=== PATIENT | male | born 1950 | race Caucasian/White ===

== ENCOUNTER 2023-07-31 13:53 | Outpatient (AMB) | payer MEDICARE, OTHER, SELFPAY ==
[2023-07-31 14:11] VITALS: BP 152/66; PULSE 60; O2SAT 98; BMI 27.5
--- NOTE | 2023-07-31 14:11 | HO.NEPHOV_ITS ---
HPI HPI Comments History of Present Illness Details 69-year-old man has a history of longsta nding hypertension and CKD. From a renal standpoint he is done well. Developed gout; PFSH Family History (Updated 07/31/23 @ 14:17 by Roxanne Rivero) Mother Breast cancer Social History (Updated 07/31/23 @ 14:16 by Roxanne Rivero) Alcohol intake: former Patient Tobacco Use Status: Former Tobacco user Vital Signs 07/31/23 14:11 07/31/23 14:30 Height 6 ft Weight 203 lb BMI 27.5 BP 152/66 H 140/60 H Blood Pressure Location Lt brachial Lt brachial Position Sitting Sitting Pulse 60 Pulse Source Pulse Oximeter Pulse Oximetry (%) 98 Oxygen Delivery Method Room Air Physical Exam Vital Signs: Last Vital Signs Pulse 60 07/31/23 14:11 BP 140/60 H 07/31/23 14:30 Pulse Ox 98 07/31/23 14:11 Oxygen Delivery Method Room Air 07/31/23 14:11 BMI result Body Mass Index 27.5 Const General: comfortable Nutritional Appearance: well nourished Orientation/consciousness: patient oriented x3 HEENT Head: No normal to inspection Mouth: moist mucous membranes Neck Neck: Yes supple and Yes no JVD Resp Auscultation: clear to auscultation bilaterally, no rales and rub present Cardio Jugular venous distension: no JVD Palpation: no palpable S3 and no palpable S4 Heart sounds: no rubs GI Palpation (GI): Soft to palpation and nontender Percussion: No Fluid wave present General: Yes no CVA tenderness Back/Spine/Pelvis Back: no CVA tenderness Skin General skin exam: no rashes or lesions noted Neuro General: patient oriented x3 Extrem General: Yes no pedal edema and No clubbing Assessment & Plan Assessment & Plan (1) CKD (chronic kidney disease): Code(s): N18.9 - Chronic kidney disease, unspecified Plan: Renal Function is at baseline Avoid nephrotoxins (2) HTN (hypertension): Code(s): I10 - Essential (primary) hypertension Plan: BP acceptable Initial reading was elevated Repeat was ok Low salt diet Keep same meds Orders: Orders Comprehensive Met. Panel 6 Months I10 - Essential (primary) hypertension, N18.9 - Chronic kidney disease, unspecified Complete Blood Count no Diff 6 Months I10 - Essential (primary) hypertension, N18.9 - Chronic kidney disease, unspecified Coding Level of Care Code Est Pt Level 4 (72996) Diagnoses CKD (chronic kidney disease) N18.9 HTN (hypertension) I10 Results Reviewed Results Reviewed: Cr 2.1 Nephrology Results: No Data to Display
[2023-07-31 14:30] VITALS: BP 140/60
== END 2023-07-31 14:39 | disposition home or self-care (01) ==
PROVIDERS: PCP Internal Medicine; Visit Provider Internal Medicine Hypertension Specialist
DX: I12.9 Hypertensive chronic kidney disease with stage 1 through stage 4 chronic kidney disease, or unspecified chronic kidney disease (principal); N18.9 Chronic kidney disease, unspecified
CPT/HCPCS: 99214

== ENCOUNTER → 2023-07-31 13:53 | Outpatient (BNVA) | payer MEDICARE, OTHER, SELFPAY | PROVIDERS: PCP Internal Medicine; Visit Provider Internal Medicine Hypertension Specialist | DX: I12.9 Hypertensive chronic kidney disease with stage 1 through stage 4 chronic kidney disease, or unspecified chronic kidney disease (principal); N18.9 Chronic kidney disease, unspecified | CPT/HCPCS: 99212 ==

== ENCOUNTER 2024-01-29 10:45 | Outpatient (AMB) | payer MEDICARE, OTHER, SELFPAY ==
--- NOTE | 2024-01-29 11:00 | HO.NEPHOV_ITS ---
Vital Signs 01/29/24 11:01 Height 6 ft Weight 199 lb BMI 27.0 BP 122/58 L Blood Pressure Location Lt brachial Position Sitting Pulse 66 Pulse Source Pulse Oximeter Pulse Oximetry (%) 97 Oxygen Delivery Method Room Air Intake Visit Reasons: 6 mon follow up/ LVM Research Neuropsychologist Required: No Accompanied by: Spouse Allergies amoxicillin [From Augmentin] Allergy (Mild, Verified 01/29/24 11:03) Unknown clavulanic acid [From Augmentin] Allergy (Mild, Verified 01/29/24 11:03) Unknown Medication List - Last Reconciled 01/29/24 by Michi Woodson MD allopurinol 300 mg PO DAILY amlodipine 10 mg PO DAILY aripiprazole 2.5 mg PO DAILY atorvastatin 80 mg PO DAILY bupropion HCl SR 150 mg PO BID carvedilol 3.125 mg PO BID escitalopram oxalate 20 mg PO DAILY ezetimibe 10 mg PO DAILY hydralazine 75 mg PO TID insulin degludec (Tresiba FlexTouch U-100 insulin) units subcut insulin lispro (Humalog KwikPen (U-100) Insulin) subcut lamotrigine 1/2 tab in AM 1 tab in PM losartan 25 mg PO DAILY trazodone 50 - 150 mg PO BEDTIME PRN HPI Comments Details: 69-year-old man has a history of longstanding hypertension and CKD. From a renal standpoint he is done well. Developed gout; PFSH Family History Mother Breast cancer Social History Alcohol intake: former Patient Tobacco Use Status: Former Tobacco user Physical Exam Vital Signs: Last Vital Signs Pulse 66 01/29/24 11:01 BP 122/58 L 01/29/24 11:01 Pulse Ox 97 01/29/24 11:01 Oxygen Delivery Method Room Air 01/29/24 11:01 BMI result Body Mass Index 27.0 Const General: comfortable; No acute distress Orientation/consciousness: patient oriented x3 Eyes General: appearance normal, both eyes and all related structures Visual Romero: normal visual romero by confrontation Neck Neck: Yes supple and Yes no JVD Resp Effort & Inspection: normal respiratory effort and respiratory effort not decreased Auscultation: rhonchi Cardio Palpation: no palpable S3 and no palpable S4 Heart sounds: no rubs GI Inspection: Yes normal to inspection Palpation (GI): Soft to palpation Percussion: Yes normal to percussion Auscultation: normal bowel sounds General: Yes no CVA tenderness Back/Spine/Pelvis Back: no CVA tenderness Skin General skin exam: no petechiae and no purpura Neuro General: patient oriented x3 and no focal motor deficits Extrem General: No clubbing and No edema Results Reviewed Nephrology Results: No Data to Display Assessment & Plan Assessment & Plan (1) CKD (chronic kidney disease): Code(s): N18.9 - Chronic kidney disease, unspecified Category: Medical Plan: Renal Function is at baseline Avoid nephrotoxins (2) HTN (hypertension): Code(s): I10 - Essential (primary) hypertension Category: Medical Plan: BP acceptable Low salt diet Keep same meds Orders: Orders Basic Metabolic Panel 6 Months N18.9 - Chronic kidney disease, unspecified Complete Blood Count Auto Diff 6 Months N18.9 - Chronic kidney disease, unspecified Coding Level of Care Code Est Pt Level 4 (10392) Diagnoses CKD (chronic kidney disease) N18.9 HTN (hypertension) I10
[2024-01-29 11:01] VITALS: BP 122/58; PULSE 66; O2SAT 97; BMI 27.0
== END 2024-01-29 11:22 | disposition home or self-care (01) ==
PROVIDERS: PCP Internal Medicine; Visit Provider Internal Medicine Hypertension Specialist
DX: I12.9 Hypertensive chronic kidney disease with stage 1 through stage 4 chronic kidney disease, or unspecified chronic kidney disease (principal); N18.9 Chronic kidney disease, unspecified
CPT/HCPCS: 99214

== ENCOUNTER → 2024-01-29 10:45 | Outpatient (BNVA) | payer MEDICARE, OTHER, SELFPAY | PROVIDERS: PCP Internal Medicine; Visit Provider Internal Medicine Hypertension Specialist | DX: I12.9 Hypertensive chronic kidney disease with stage 1 through stage 4 chronic kidney disease, or unspecified chronic kidney disease (principal); N18.9 Chronic kidney disease, unspecified | CPT/HCPCS: 99212 ==

== ENCOUNTER 2024-07-22 11:34 | Outpatient (AMB) | payer MEDICARE, OTHER, SELFPAY ==
[2024-07-22 11:44] VITALS: BP 140/68; PULSE 65; O2SAT 97; BMI 26.4
--- NOTE | 2024-07-22 11:44 | HO.NEPHOV ---
Vital Signs 07/22/24 11:44 07/22/24 11:57 Height 6 ft Weight 195 lb BMI 26.4 BP 140/68 H 130/60 Blood Pressure Location Lt brachial Lt brachial Position Sitting Sitting Pulse 65 Pulse Source Pulse Oximeter Pulse Oximetry (%) 97 Oxygen Delivery Method Room Air Intake Visit Reasons: CKD/ Conf Laboratory Animal Facility Supervisor Required: No Accompanied by: Self / Same As Patient Allergies amoxicillin [From Augmentin] Allergy (Mild, Verified 07/22/24 11:47) Unknown clavulanic acid [From Augmentin] Allergy (Mild, Verified 07/22/24 11:47) Unknown Medication List - Last Reconciled 07/22/24 by Michi Woodson MD allopurinol 300 mg PO DAILY amlodipine 10 mg PO DAILY aripiprazole 2.5 mg PO DAILY atorvastatin 80 mg PO DAILY bupropion HCl SR 150 mg PO BID carvedilol 3.125 mg PO BID escitalopram oxalate 20 mg PO DAILY ezetimibe 10 mg PO DAILY hydralazine 75 mg PO TID insulin degludec (Tresiba FlexTouch U-100 insulin) 18 units subcut .nightly lamotrigine 200 mg PO BID losartan 25 mg PO DAILY trazodone 50 - 150 mg PO BEDTIME HPI Comments Details: 69-year-old man has a history of longstanding hypertension and CKD. From a renal standpoint he is done well. Developed gout; PFSH Family History Mother Breast cancer Social History Alcohol intake: former Patient Tobacco Use Status: Former Tobacco user Physical Exam Vital Signs: Last Vital Signs Pulse 65 07/22/24 11:44 BP 140/68 H 07/22/24 11:44 Pulse Ox 97 07/22/24 11:44 Oxygen Delivery Method Room Air 07/22/24 11:44 BMI result Body Mass Index 26.4 Const General: comfortable; No acute distress Orientation/consciousness: patient oriented x3 Eyes General: appearance normal, both eyes and all related structures Visual Romero: normal visual romero by confrontation Neck Neck: Yes supple and Yes no JVD Resp Effort & Inspection: normal respiratory effort and respiratory effort not decreased Cardio Palpation: no palpable S3 and no palpable S4 Heart sounds: no rubs GI Inspection: Yes normal to inspection Palpation (GI): Soft to palpation Percussion: Yes normal to percussion Auscultation: normal bowel sounds General: Yes no CVA tenderness Back/Spine/Pelvis Back: no CVA tenderness Skin General skin exam: no petechiae and no purpura Neuro General: patient oriented x3 and no focal motor deficits Extrem General: No clubbing and No edema Results Reviewed Results Reviewed: Cr 2.0 in July 2024 Nephrology Results: No Data to Display Assessment & Plan Assessment & Plan (1) CKD (chronic kidney disease): Code(s): N18.9 - Chronic kidney disease, unspecified Category: Medical Plan: Renal Function is at baseline Avoid nephrotoxins Maintain A1C < 7% Would benefit from SGLT2 Inhibitor (2) HTN (hypertension): Code(s): I10 - Essential (primary) hypertension Category: Medical Plan: BP acceptable Low salt diet Keep same meds Orders: Orders Basic Metabolic Panel 6 Months N18.9 - Chronic kidney disease, unspecified Coding Level of Care Code Est Pt Level 4 (63387) Diagnoses CKD (chronic kidney disease) N18.9 HTN (hypertension) I10
[2024-07-22 11:57] VITALS: BP 130/60
== END 2024-07-22 12:02 | disposition home or self-care (01) ==
LOC: HO.HKAS 11:35
PROVIDERS: PCP Internal Medicine; Visit Provider Internal Medicine Hypertension Specialist
DX: I12.9 Hypertensive chronic kidney disease with stage 1 through stage 4 chronic kidney disease, or unspecified chronic kidney disease (principal); N18.9 Chronic kidney disease, unspecified
CPT/HCPCS: 99214

== ENCOUNTER → 2024-07-22 11:34 | Outpatient (BNVA) | payer MEDICARE, OTHER, SELFPAY | PROVIDERS: PCP Internal Medicine; Visit Provider Internal Medicine Hypertension Specialist | DX: I12.9 Hypertensive chronic kidney disease with stage 1 through stage 4 chronic kidney disease, or unspecified chronic kidney disease (principal); N18.9 Chronic kidney disease, unspecified | CPT/HCPCS: 99212 ==

== ENCOUNTER 2025-02-24 11:40 | Outpatient (AMB) | payer MEDICARE, OTHER, SELFPAY ==
--- OUTSIDE RECORDS SUMMARY | 2024-08-20 10:00 | XMS_ITS ---
Author Organization [facility], Address [address] [place] [address] Care Team Providers Care Ems Educator Name Role Phone Bonifacio Cuevas Primary Care Provider Bonifacio Cuevas Unavailable Unavailable ALLERGIES Allergen (clinical drug ingredient) Drug/Non Drug Allergy documented on EMR Reaction Allergy Type Onset Date Status amoxicillin / clavulanate Augmentin Unknown Drug Allergy Active REASON FOR VISIT (IN OFFICE), Follow Up MEDICATIONS Medication SIG (Take, Route, Frequency, Duration) Notes Start Date End Date Status Escitalopram Oxalate 20 MG (Prior Auth: Rx Ref#:[id number]) Oral Active lamoTRIgine 200 MG (Prior Auth: Rx Ref#:[id number]) Oral Active Furosemide 20 MG 1 tablet Orally Twic e a day for 30 day(s) Active HumaLOG KwikPen 100 UNIT/ML 10 units Subcutaneous Three times a day Active Tresiba 100 U-100 20 units at bedtime Injection Once a day Active Carvedilol 3.125 MG TAKE ONE TABLET BY M OUTH TWICE DAILY Active buPROPion HCl ER (SR) 150 MG (Prior Auth: Rx Ref#:[id number]) Oral Active Atorvastatin Calcium 80 MG TAKE 1 TABLET BY MOUTH EVERY DAY Active Ezetimibe 10 MG TAKE 1 TABLET BY VICENTE TH EVERY DAY Active traZODone HCl 50 MG 3 tablet at bedtime Orally Once a day Active Fluticasone Propionate 50 MCG/ACT SPRAY 1 SPRAY INTO EACH NOSTRIL EVERY DAY FOR 90 DAYS for 90 Active amLODIPine Besylate 10 MG 1 tablet Orally Once a day Active hydrALAZINE HCl 50 MG 2 tablet with food Orally Three times a day Active Trelegy Ellipta 100-62.5-25 MCG/INH 1 puff Inhalation Once a day Active Albuterol Sulfate HFA 108 (90 Base) MCG/ACT INHALE 2 PUFFS BY MOUTH NEEDED EVERY 6 HOURS Active Mucinex 600 MG 1 tablet as needed O rally every 12 hrs for 10 days 07/15/2024 Active Azithromycin 250 MG 2 tablets on the day, then 1 tablet daily for 4 days Orally Once a day for 5 day(s) 07/15/2024 Active Ezetimibe 10 MG TAKE 1 TABLET BY VICENTE TH EVERY DAY for 90 Active Atorvastatin Calcium 80 MG TAKE 1 TABLET BY MOUTH EVERY DAY for 90 Active Allopurinol 300 MG TAKE 1 TABLET BY VICENTE TH EVERY DAY for 90 Active Fenofibrate Micronized 134 MG 1 capsule Orally Once a day Active Plavix 75 MG 1 tablet Orally Once a day Active Isosorbide Mononitrate ER 30 MG 1 tablet in the morning Orally Once a day Active Albuterol Sulfate HFA 108 (90 Base) MCG/ACT INHALE 2 PUFFS INTO THE LUNGS EVERY 4 HOURS NEEDED for 30 Active Carvedilol 3.125 MG TAKE 1 TABLET BY VICENTE TH TWICE A DAY WITH FOOD FOR 90 DAYS for 90 Active ARIPiprazole 2 MG Oral for 30 Active SOCIAL HISTORY Tobacco Use: Social History Observation Description Date Details (start date - stop date) Former Smoker NA - NA Sex Assigned At : Social History Observation Description Sex Assigned At Unknown Tobacco Use/Smoking Question Answer Notes Are you a former smoker How long has it been since you last smoked? > 10 years Encounters Encounter Location Date Provider Diagnosis [address] [address] 08/20/2024 Bonifacio Cuevas Chronic obstructive pulmonary disease, unspecified COPD type J44.9 ; Type 2 diabetes mellitus without complications E11.9 ; Essential hypertension I10 ; Aortic valve stenosis, etiology of cardiac valve disease unspecified I35.0 ; Recurrent major depressive disorder, in full remission F33.42 ; Chronic kidney disease, stage 4 (severe) N18.4 ; Mixed hyperlipidemia E78.2 ; Gouty arthritis M10.9 ; Leg edema R60.0 ; Difficulty walking R26.2 ; Primary insomnia F51.01 and Anxiety F41.9 ASSESSMENTS Encounter Date Diagnosis Assessment Notes Treatment Notes Treatment Clinical Notes Section Notes 08/20/2024 Chronic obstructive pulmonary disease, unspecified COPD type (ICD-10 - J44.9) 08/20/2024 Type 2 diabetes mellitus without complications (ICD-10 - E11.9) 08/20/2024 Essential hypertension (ICD-10 - I10) 08/20/2024 Aortic valve stenosis, etiology of cardiac valve disease unspecified (ICD-10 - I35.0) 08/20/2024 Recurrent major depressive disorder, in full remission (ICD-10 - F33.42) Well controlled on current therapy, continue present regimen 08/20/2024 Chronic kidney disease, stage 4 (severe) (ICD-10 - N18.4) 08/20/2024 Mixed hyperlipidemia (ICD-10 - E78.2) Well controlled on current therapy, continue present regimen 08/20/2024 Gouty arthritis (ICD-10 - M10.9) 08/20/2024 Leg edema (ICD-10 - R60.0) Patient was advised to hold furosemide and monitor his weight and leg swelling. I explained to him that if he starts gaining weight and having difficulty breathing or leg edema to start the medication again. 08/20/2024 Difficulty walking (ICD-10 - R26.2) 08/20/2024 Primary insomnia (ICD-10 - F51.01) 08/20/2024 Anxiety (ICD-10 - F41.9) Well controlled on current therapy, continue present regimen 08/20/2024 Other This chart has been transcribed by a computerized dictation system. There are likely to be multiple street cleaner inaccuracies despite chart review. PLAN OF TREATMENT Medication Medication Name Sig Start Date Stop Date Notes Escitalopram Oxalate 20 MG (Prior Auth: Rx Ref#:[id number]) Oral lamoTRIgine 200 MG (Prior Auth: Rx Ref#:[id number]) Oral Furosemide 20 MG 1 tablet Orally Twic e a day for 30 day(s) HumaLOG KwikPen 100 UNIT/ML 10 units Sub cutaneous Three times a day Tresiba 100 U-100 20 units at bedtime Injection Once a day Carvedilol 3.125 MG TAKE ONE TABLET BY M OUTH TWICE DAILY buPROPion HCl ER (SR) 150 MG (Prior Auth : Rx Ref#:[id number]) Oral Atorvastatin Calcium 80 MG TAKE 1 TABLET BY MOUTH EVERY DAY Ezetimibe 10 MG TAKE 1 TABLET BY VICENTE TH EVERY DAY traZODone HCl 50 MG 3 tablet at bedtime Orally Once a day amLODIPine Besylate 10 MG 1 tablet Orally Once a day hydrALAZINE HCl 50 MG 2 tablet with food Orally Three times a day Trelegy Ellipta 100-62.5-25 MCG/INH 1 puff Inhalation Once a day Albuterol Sulfate HFA 108 (9 0 Base) MCG/ACT INHALE 2 PUFFS BY MOUTH NEEDED EVERY 6 HOURS Treatment Notes Assessment Notes Recurrent major depressive d isorder, in full remission Well controlled on current therapy, continue present regimen Mixed hyperlipidemia Well controlled on current therapy, continue present regimen Leg edema Patient was advised to hold furosemide and monitor his weight and leg swelling. I explained to him that if he starts gaining weight and having difficulty breathing or leg edema to start the medication again. Anxiety Well controlled on c urrent therapy, continue present regimen Other This chart has been transcribed by a computerized dictation system. There are likely to be multiple street cleaner inaccuracies despite chart review. Next Appt Details Provider Name:Edwina Max sweetie, 04/21/2025 01:15:00 PM, [address] [place] [address], [id number], Progress Notes * Examination Category Sub-Category Detail Notes Category Not es General Examination GENERAL APPEARANCE: in no ac joseph distress, well developed, well nourished HEAD: normocephalic, atrau matic EYES: pupils equal, round, reactive to light and accommodation EARS: Bilateral impacted c erumen THROAT: clear, no erythema, uvula midline, no exudate NECK/THYROID: neck supple, no thyr omegaly, trachea midline, no carotid bruit HEART: no murmurs, regular rate and rhythm, S1, S2 normal LUNGS: clear to auscultatio n bilaterally ABDOMEN: soft, nontender, non distended, no organomegaly , bowel sounds present NEUROLOGIC: alert and oriented x 3, nonfocal SKIN: no suspicious lesion s, warm and dry EXTREMITIES: no clubbing, cyanosi s, or edema PERIPHERAL PULSES: normal, 2+ throughou t MUSCULOSKELETAL: normal, full range o f motion LYMPH NODES: no cervical, axillar y, supraclavicular or inguinal adenopathy PSYCH: cognitive function i ntact, mood/affect full range ORAL CAVITY: mucosa moist, no les ions, palate normal, tongue in midline, well papillated History and Physical Notes * HPI (History of Present Illness) Category Sub-Category Detail Notes Category Not es Symptom(s) 74-year-old mal e patient with history of aortic stenosis, lithium induced chronic kidney disease, hypertension, hyperlipidemia, anxiety, depression, DM2, and insomnia, is here complaining of cough, congestion, yellow-green phlegm, for the past 3-4 days. Patient denies fever, chills, or other constitutional symptoms. He is compliant with his regular medications without any side effects.
--- OUTSIDE RECORDS SUMMARY | 2024-08-20 11:17 | XMS_ITS ---
Author Organization [facility] Address [address] [place] [address] Care Team Providers Care Athletic Shoe Designer Name Role Phone Bonifacio Cuevas Primary Care Provider [phone] Bonifacio Cuevas Unavailable Unavailable REASON FOR VISIT Samples Encounters Encounter Location Date Provider Diagnosis [facility] [address] [place] [address] 08/21/19 Bonifacio Cuevas PLAN OF TREATMENT Next Appt Details Provider Name:Edwina Max i, 04/21/2025 01:15:00 PM, [address] [place], [address],
--- OUTSIDE RECORDS SUMMARY | 2024-09-12 09:24 | XMS_ITS ---
Author Organization [facility] Address [address] [place] [address] Care Team Providers Care Supervisor Rice Milling Name Role Phone Bonifacio Cuevas Primary Care Provider [phone] Bonifacio Cuevas Unavailable Unavailable REASON FOR VISIT Prescription refill MEDICATIONS Medication SIG (Take, Route, Fr equency, Duration) Notes Start Date End Date Status Carvedilol 3.125 MG 1 tablet with food O rally Twice a day for 90 Days Active Encounters Encounter Location Date Provider Diagnosis [facility] [address] [place] [address] 09/13/19 Bonifacio Cuevas PLAN OF TREATMENT Medication Medication Name Sig Start Date Stop Date Notes Carvedilol 3.125 MG 1 tablet with food O rally Twice a day for 90 Days Next Appt Details Provider Name:Edwina Max i, 04/21/2025 01:15:00 PM, [address] [place] [address], [phone],
--- OUTSIDE RECORDS SUMMARY | 2024-09-16 03:46 | XMS_ITS ---
Author Organization [facility] Address [address] [place] [address] Care Team Providers Care Director Strategic Planning Name Role Phone Bonifacio Cuevas Primary Care Provider [phone] Bonifacio Cuevas Unavailable Unavailable REASON FOR VISIT Appt Encounters Encounter Location Date Provider Diagnosis [facility] [address] [place] [address] 09/17/19 Bonifacio Cuevas PLAN OF TREATMENT Next Appt Details Provider Name:Edwina Max i, 04/21/2025 01:15:00 PM, [address] [place], [address],
--- OUTSIDE RECORDS SUMMARY | 2024-10-20 10:08 | XMS_ITS ---
Author Organization [facility] Address [address] [place] [address] Care Team Providers Care Speech And Hearing [facility] Director Name Role Phone Bonifacio Cuevas Primary Care Provider Bonifacio Cuevas Unavailable Unavailable REASON FOR VISIT Walker Encounters Encounter Location Date Provider Diagnosis [facility] [address] [place] [address] 10/21/19 Bonifacio Cuevas PLAN OF TREATMENT Next Appt Details Provider Name:Edwina Max i, 04/21/2025 01:15:00 PM, [address] [place], [address],
--- OUTSIDE RECORDS SUMMARY | 2025-01-14 09:15 | XMS_ITS ---
Author Organization [facility] Address [address] [place] [address] Care Team Providers Care Senior Production Manager Name Role Phone Bonifacio Cuevas Primary Care Provider Bonifacio Cuevas Unavailable Unavailable REASON FOR VISIT (IN OFFICE), Follow Up Encounters Encounter Location Date Provider Diagnosis [facility] [address] [place] [address] 01/15/20 25 Bonifacio Cuevas PLAN OF TREATMENT Next Appt Details Provider Name:Edwina Max i, 04/21/2025 01:15:00 PM, [address] [place], [address],
--- OUTSIDE RECORDS SUMMARY | 2025-01-25 09:15 | XMS_ITS ---
Author Organization [facility] Address [address] [place] [address] Care Team Providers Care Ham Pumper Name Role Phone Bonifacio Cuevas Primary Care Provider Bonifacio Cuevas Unavailable Unavailable ALLERGIES Allergen (clinical drug ingredient) Drug/Non Drug Allergy documented on EMR Reaction Allergy Type Onset Date Status amoxicillin / clavulanate Augmentin Unknown Drug Allergy Active RESULTS Component Value Reference Range Notes [id number] [id number] Reviewed date:01/28/2025 09:32:27 AM Interpretation: Performing Lab:[facility], [address] [facility], Phone - [phone], Director - Stacie Notes/Report: Uric Acid 2.9 3.8-8.4 mg/dL Therapeutic ta rget for gout patients: <6.0 Hemoglobin [id number] Reviewed date:01/28/2025 09:32:27 AM Interpretation: Performing Lab:[facility], [address] [facility], Phone - [phone], Director - MDJodry Notes/Report: Hemoglobin A1c 6.7 4.8-5.6 % . Prediabetes: 5.7 - 6.4 Diabetes: >6.4 Glycemic control for adults with diabetes: <7.0 LP+Non-HDL Cholesterol-[id number] 5 Reviewed date:01/28/2025 09:32:28 AM Interpretation: Performing Lab:[facility], [address] [facility], [place], Phone - [phone], Director - MDJodry Notes/Report: Cholesterol, Total 113 100-199 mg/dL Triglycerides 156 0-149 mg/dL HDL Cholesterol 35 >39 mg/dL VLDL Cholesterol Blake 27 5-40 mg/dL LDL Chol Calc ([facility]) 51 0-99 mg/dL LDL Calc Comment: Non-HDL Cholesterol 78 0-129 mg/dL Comp. Metabolic Panel [id number] Reviewed date:01/28/2025 09:32:28 AM Interpretation: Performing Lab:[facility], [address] [facility], [place], Phone - [phone], Director - Staice Notes/Report: Glucose 88 70-99 mg/dL BUN 24 8-27 mg/dL Creatinine 2.11 0.76-1.27 mg/dL eGFR 32 >59 mL/min/1.73 BUN/Creatinine Ratio 11 10-24 Sodium 140 134-144 mmol/L Potassium 4.4 3.5-5.2 mmol/L Chloride 104 96-106 mmol/L Carbon Dioxide, Total 18 20-29 mmol/L Calcium 9.3 8.6-10.2 mg/dL Protein, Total 6.3 6.0-8.5 g/dL Albumin 4.3 3.8-4.8 g/dL Globulin, Total 2.0 1.5-4.5 g/dL Bilirubin, Total <0.2 0.0-1.2 mg/dL Alkaline Phosphatase 81 47-123 IU/L Pleas e note reference interval change AST (SGOT) 24 0-40 IU/L [id number] Reviewed date:01/28/2025 09:32:28 AM Interpretation: Performing Lab:[facility], [address] [facility], [place], Phone - [phone], Director - Stacie Notes/Report: NT-proBNP 207 0-486 pg/mL The following cut-points have been suggested for the use of proBNP for the diagnostic evaluation of heart failure (HF) in patients with acute dyspnea: . Modality Age Optimal Cut (years) Point Diagnosis (rule in HF) <50 450 pg/mL 50 - 75 900 pg/mL >75 1800 pg/mL Exclusion (rule out HF) Age independent 300 pg/mL REASON FOR VISIT (IN OFFICE), Follow Up MEDICATIONS Medication SIG (Take, Route, Frequency, Duration) Notes Start Date End Date Status Carvedilol 3.125 MG TAKE ONE TABLET BY M OUTH TWICE DAILY Active Escitalopram Oxalate 20 MG (Prior Auth: Rx Ref#:[id number]) Oral Active buPROPion HCl ER (SR) 150 MG (Prior Auth: Rx Ref#:[id number]) Oral Active HumaLOG KwikPen 100 UNIT/ML 10 units Subcutaneous Three times a day Active lamoTRIgine 200 MG (Prior Auth: Rx Ref#:[id number]) Oral Active Trelegy Ellipta 100-62.5-25 MCG/INH 1 puff Inhalation Once a day Active traZODone HCl 50 MG 3 tablet at bedtime Orally Once a day Active Albuterol Sulfate HFA 108 (90 Base) MCG/ACT INHALE 2 PUFFS BY MOUTH NEEDED EVERY 6 HOURS Active Ezetimibe 10 MG TAKE 1 TABLET BY VICENTE TH EVERY DAY Active Atorvastatin Calcium 80 MG TAKE 1 TABLET BY MOUTH EVERY DAY Active Ezetimibe 10 MG TAKE 1 TABLET BY VICENTE TH EVERY DAY for 90 Active amLODIPine Besylate 10 MG TAKE 1 TABLET BY MOUTH EVERY DAY FOR 90 DAYS for 90 Active Carvedilol 3.125 MG TAKE 1 TABLET BY VICENTE TH TWICE A DAY WITH FOOD FOR 90 DAYS for 90 Active Allopurinol 300 MG TAKE 1 TABLET BY VICENTE TH EVERY DAY for 90 Active Atorvastatin Calcium 80 MG TAKE 1 TABLET BY MOUTH EVERY DAY for 90 Active Admelog SoloStar 100 UNIT/ML Subcutaneous for 90 Active Fluticasone Propionate 50 MCG/ACT SPRAY 1 SPRAY INTO EACH NOSTRIL EVERY DAY FOR 90 DAYS for 90 Active Furosemide 20 MG 1 tablet Orally Twic e a day for 30 day(s) Active Plavix 75 MG 1 tablet Orally Once a day Active Albuterol Sulfate HFA 108 (90 Base) MCG/ACT INHALE 2 PUFFS INTO THE LUNGS EVERY 4 HOURS NEEDED for 30 Active amLODIPine Besylate 10 MG 1 tablet Orally Once a day Active ARIPiprazole 5 MG 1/2 TABLET BY MOUTH DAILY Oral Active hydrALAZINE HCl 50 MG 1.5 tablet with fo od Orally Three times a day Active Fenofibrate Micronized 134 MG 1 capsule Orally Once a day Active Rollator Ultra-Light - as directed Active Tresiba 100 U-100 18 units at bedtime Injection Once a day Active SOCIAL HISTORY Tobacco Use: Social History Observation Description Date Details (start date - stop date) Former Smoker NA - NA Sex Assigned At : Social History Observation Description Sex Assigned At Unknown Tobacco Use/Smoking Question Answer Notes Are you a former smoker How long has it been since you last smoked? > 10 years VITAL SIGNS Blood pressure systolic 124 mm Hg 01/26/20 25 Blood pressure diastolic 70 mm Hg 025 Heart Rate 76 /min 01/25/2025 Height 72 in 01/25/2025 Weight 192.6 lbs 01/25/2025 BMI 26.12 kg/m2 01/25/2025 192.6 Encounters Encounter Location Date Provider Diagnosis [facility] [address] [address] 01/25/2025 Bonifacio Cuevas Chronic obstructive pulmonary disease, unspecified COPD type J44.9 ; Type 2 diabetes mellitus without complications E11.9 ; Essential hypertension I10 ; Aortic valve stenosis, etiology of cardiac valve disease unspecified I35.0 ; Recurrent major depressive disorder, in full remission F33.42 ; Chronic kidney disease, stage 4 (severe) N18.4 ; Mixed hyperlipidemia E78.2 ; Gouty arthritis M10.9 ; Primary insomnia F51.01 ; Difficulty walking R26.2 ; Anxiety F41.9 and Gait instability R26.81 ASSESSMENTS Encounter Date Diagnosis Assessment Notes Treatment Notes Treatment Clinical Notes Section Notes 01/25/2025 Chronic obstructive pulmonary disease, unspecified COPD type (ICD-10 - J44.9) 01/25/2025 Type 2 diabetes mellitus without complications (ICD-10 - E11.9) 01/25/2025 Essential hypertension (ICD-10 - I10) 01/25/2025 Aortic valve stenosis, etiology of cardiac valve disease unspecified (ICD-10 - I35.0) 01/25/2025 Recurrent major depressive disorder, in full remission (ICD-10 - F33.42) 01/25/2025 Chronic kidney disease, stage 4 (severe) (ICD-10 - N18.4) 01/25/2025 Mixed hyperlipidemia (ICD-10 - E78.2) 01/25/2025 Gouty arthritis (ICD-10 - M10.9) 01/25/2025 Primary insomnia (ICD-10 - F51.01) 01/25/2025 Difficulty walking (ICD-10 - R26.2) 01/25/2025 Anxiety (ICD-10 - F41.9) 01/25/2025 Gait instability (ICD-10 - R26.81) 01/25/2025 Other This chart has been transcribed by a computerized dictation system. There are likely to be multiple delivery stock clerk inaccuracies despite chart review. PLAN OF TREATMENT Medication Medication Name Sig Start Date Stop Date Notes Carvedilol 3.125 MG TAKE ONE TABLET BY M OUTH TWICE DAILY Escitalopram Oxalate 20 MG (Prior Auth: Rx Ref#:[id number]) Oral buPROPion HCl ER (SR) 150 MG (Prior Auth : Rx Ref#:[id number]) Oral HumaLOG KwikPen 100 UNIT/ML 10 units Sub cutaneous Three times a day lamoTRIgine 200 MG (Prior Auth: Rx Ref#:[id number]) Oral Trelegy Ellipta 100-62.5-25 MCG/INH 1 puff Inhalation Once a day traZODone HCl 50 MG 3 tablet at bedtime Orally Once a day Albuterol Sulfate HFA 108 (9 0 Base) MCG/ACT INHALE 2 PUFFS BY MOUTH NEEDED EVERY 6 HOURS Ezetimibe 10 MG TAKE 1 TABLET BY VICENTE TH EVERY DAY Atorvastatin Calcium 80 MG TAKE 1 TABLET BY MOUTH EVERY DAY amLODIPine Besylate 10 MG 1 tablet Orally Once a day ARIPiprazole 5 MG 1/2 TABLET BY MOUTH DAILY Oral hydrALAZINE HCl 50 MG 1.5 tablet with fo od Orally Three times a day Rollator Ultra-Light - as directed Tresiba 100 U-100 18 units at bedtime Injection Once a day Treatment Notes Assessment Notes Other This chart has been transcribed by a computerized dictation system. There are likely to be multiple delivery stock clerk inaccuracies despite chart review. Next Appt Details Follow Up: 1 Week, Reason: F ollow-up [facility] Cuevas Provider Name:Edwina Winter pitt, 04/21/2025 01:15:00 PM, [address] [place] [address], [phone], Progress Notes * Examination Category Sub-Category Detail Notes Category Not es General Examination GENERAL APPEARANCE: in no ac joseph distress, well developed, well nourished HEAD: normocephalic, atrau matic EYES: pupils equal, round, reactive to light and accommodation EARS: normal, auditory can al clear THROAT: clear, no erythema, uvula midline, no [...] t MUSCULOSKELETAL: normal, full range o f motion, ambulating with walker LYMPH NODES: no cervical, axillar y, supraclavicular or inguinal adenopathy PSYCH: cognitive function i ntact, mood/affect full range ORAL CAVITY: mucosa moist, no les ions, palate normal, tongue in midline, well papillated History and Physical Notes * HPI (History of Present Illness) Category Sub-Category Detail Notes Category Not es Symptom(s) 75-year-old mal e patient with history of aortic stenosis, lithium induced chronic kidney disease, hypertension, hyperlipidemia, anxiety, depression, DM2, and insomnia, is here for a follow-up, accompanied by his . Patient was supposed to have labs prior to this visit but forgot about it. I ordered appropriate for him and instructed patient and his to make sure the labs are done before his next visit. He is compliant with his medications without any side effects. His blood pressure is well-controlled. He denies chest pain, palpitation, or shortness of breath. His chronic respiratory symptoms are well-controlled on current inhalers
--- OUTSIDE RECORDS SUMMARY | 2025-02-02 09:00 | XMS_ITS ---
Author Organization [facility], Address [address] [place] [address] Care Team Providers Care Lead Software Architect Name Role Phone Bonifacio Cuevas Primary Care Provider Bonifacio Cuevas Unavailable Unavailable ALLERGIES Allergen (clinical drug ingredient) Drug/Non Drug Allergy documented on EMR Reaction Allergy Type Onset Date Status amoxicillin / clavulanate Augmentin Unknown Drug Allergy Active REASON FOR VISIT (IN OFFICE), Follow Up 1 wk MEDICATIONS Medication SIG (Take, Route, Frequency, Duration) Notes Start Date End Date Status Escitalopram Oxalate 20 MG (Prior Auth: Rx Ref#:[id number]) Oral Active buPROPion HCl ER (SR) 150 MG (Prior Auth: Rx Ref#:[id number]) Oral Active HumaLOG KwikPen 100 UNIT/ML 10 units Subcutaneous Three times a day Active lamoTRIgine 200 MG (Prior Auth: Rx Ref#:[id number]) Oral Active Carvedilol 3.125 MG TAKE ONE TABLET BY M OUTH TWICE DAILY Active Albuterol Sulfate HFA 108 (90 Base) MCG/ACT inhale 2 puffs by mouth as needed every 6 hours Active Allopurinol 300 MG TAKE 1 TABLET BY VICENTE TH EVERY DAY for 90 Active Rollator Ultra-Light - as directed Active Atorvastatin Calcium 80 MG TAKE 1 TABLET BY MOUTH EVERY DAY Active Ezetimibe 10 MG TAKE 1 TABLET BY VICENTE TH EVERY DAY Active Trelegy Ellipta 100-62.5-25 MCG/INH 1 puff Inhalation Once a day Active Atorvastatin Calcium 80 MG TAKE 1 TABLET BY MOUTH EVERY DAY for 90 Active amLODIPine Besylate 10 MG TAKE 1 TABLET BY MOUTH EVERY DAY FOR 90 DAYS for 90 Active Albuterol Sulfate HFA 108 (90 Base) MCG/ACT INHALE 2 PUFFS INTO THE LUNGS EVERY 4 HOURS NEEDED for 17 Active traZODone HCl 50 MG 3 tablet at bedtime Orally Once a day Active ARIPiprazole 5 MG 1/2 TABLET BY MOUTH DAILY Oral Active Plavix 75 MG 1 tablet Orally Once a day Active Fenofibrate Micronized 134 MG 1 capsule Orally Once a day Active Carvedilol 3.125 MG TAKE 1 TABLET BY VICENTE TH TWICE A DAY WITH FOOD FOR 90 DAYS for 90 Active Furosemide 20 MG 1 tablet Orally Twic e a day for 30 day(s) Active amLODIPine Besylate 10 MG 1 tablet Orally Once a day Active Tresiba 100 U-100 18 units at bedtime Injection Once a day Active hydrALAZINE HCl 50 MG 1.5 tablet with fo od Orally Three times a day Active SOCIAL HISTORY Tobacco Use: Social History Observation Description Date Details (start date - stop date) Former Smoker NA - NA Sex Assigned At : Social History Observation Description Sex Assigned At Unknown Tobacco Use/Smoking Question Answer Notes Are you a former smoker How long has it been since you last smoked? > 10 years VITAL SIGNS Blood pressure systolic 120 mm Hg 02/03/20 25 Blood pressure diastolic 60 mm Hg 025 Heart Rate 78 /min 02/02/2025 Height 72 in 02/02/2025 Weight 192.8 lbs 02/02/2025 BMI 26.15 kg/m2 02/02/2025 Encounters Encounter Location Date Provider Diagnosis [email or web address] [address] 02/02/2025 Bonifacio Cuevas Chronic obstructive pulmonary disease, unspecified [...] Treatment Notes Treatment Clinical Notes Section Notes 02/02/2025 Chronic obstructive pulmonary disease, unspecified COPD type (ICD-10 - J44.9) 02/02/2025 Type 2 diabetes mellitus without complications (ICD-10 - E11.9) 02/02/2025 Essential hypertension (ICD-10 - I10) 02/02/2025 Aortic valve stenosis, etiology of cardiac valve disease unspecified (ICD-10 - I35.0) 02/02/2025 Recurrent major depressive disorder, in full remission (ICD-10 - F33.42) 02/02/2025 Chronic kidney disease, stage 4 (severe) (ICD-10 - N18.4) 02/02/2025 Mixed hyperlipidemia (ICD-10 - E78.2) 02/02/2025 Gouty arthritis (ICD-10 - M10.9) 02/02/2025 Primary insomnia (ICD-10 - F51.01) 02/02/2025 Difficulty walking (ICD-10 - R26.2) 02/02/2025 Anxiety (ICD-10 - F41.9) 02/02/2025 Gait instability (ICD-10 - R26.81) 02/02/2025 Other This chart has been transcribed by a computerized dictation system. There are likely to be multiple cover marker inaccuracies despite chart review. PLAN OF TREATMENT Medication Medication Name Sig Start Date Stop Date Notes Escitalopram Oxalate 20 MG (Prior Auth: Rx Ref#:[id number]) Oral buPROPion HCl ER (SR) 150 MG (Prior Auth : Rx Ref#:[id number]) Oral HumaLOG KwikPen 100 UNIT/ML 10 units Sub cutaneous Three times a day lamoTRIgine 200 MG (Prior Auth: Rx Ref#:[id number]) Oral Carvedilol 3.125 MG TAKE ONE TABLET BY M OUTH TWICE DAILY Albuterol Sulfate HFA 108 (9 0 Base) MCG/ACT inhale 2 puffs by mouth as needed every 6 hours Rollator Ultra-Light - as directed Atorvastatin Calcium 80 MG TAKE 1 TABLET BY MOUTH EVERY DAY Ezetimibe 10 MG TAKE 1 TABLET BY VICENTE TH EVERY DAY Trelegy Ellipta 100-62.5-25 MCG/INH 1 puff Inhalation Once a day traZODone HCl 50 MG 3 tablet at bedtime Orally Once a day ARIPiprazole 5 MG 1/2 TABLET BY MOUTH DAILY Oral amLODIPine Besylate 10 MG 1 tablet Orally Once a day Tresiba 100 U-100 18 units at bedtime Injection Once a day hydrALAZINE HCl 50 MG 1.5 tablet with fo od Orally Three times a day Treatment Notes Assessment Notes Other This chart has been transcribed by a computerized dictation system. There are likely to be multiple cover marker inaccuracies despite chart review. Pending Test Test Name Order Date Hemoglobin [id number] 02/02/2025 Next Appt Details Follow Up: 3 Months, Reason: Follow up with Edwina Provider Name:Edwina Max i, 04/21/2025 01:15:00 PM, [address] [place] [address], [phone], Progress Notes * Examination Category Sub-Category Detail [...] for a follow-up, accompanied by his . Discussed his lab results with him during the visit which were within acceptable range. Patient is compliant with his medications without any side effects. His blood pressure is well controlled. He denies chest pain, palpitation, or shortness of breath. His anxiety and depression is well-controlled on current medications.
[2025-02-24 11:42] VITALS: BP 112/44; PULSE 56; O2SAT 97; BMI 26.2
--- NOTE | 2025-02-24 11:42 | HO.NEPHOV ---
Vital Signs 02/24/25 11:42 Height 6 ft Weight 193 lb BMI 26.2 BP 112/44 L Blood Pressure Location Lt brachial Position Sitting Pulse 56 Pulse Source Pulse Oximeter Pulse Oximetry (%) 97 Oxygen Delivery Method Room Air Intake Visit Reasons: CKD/ Confirmed Telemetry Registered Nurse Required: No Accompanied by: Spouse Allergies amoxicillin (From Augmentin) Allergy (Mild, Verified 02/24/25 11:43) Unknown clavulanic acid (From Augmentin) Allergy (Mild, Verified 02/24/25 11:43) Unknown Medication List - Last Reconciled 02/24/25 by Michi Woodson MD albuterol sulfate 90 mcg/actuation 2 puffs inhalation Q4H PRN allopurinol 300 mg PO DAILY amlodipine 10 mg PO DAILY aripiprazole 2.5 mg PO DAILY atorvastatin 80 mg PO DAILY bupropion HCl SR 150 mg PO BID carvedilol 3.125 mg PO BID escitalopram oxalate 20 mg PO DAILY ezetimibe 10 mg PO DAILY fluticasone propionate 50 mcg/actuation 1 spray intranasal DAILY hydralazine 50 mg PO TID insulin degludec (Tresiba FlexTouch U-100 insulin) 18 units subcut .nightly insulin lispro (Admelog SoloStar U-100 Insulin lispro) 0 - 10 units subcut TID isosorbide mononitrate ER 30 mg PO DAILY lamotrigine 200 mg PO BID losartan 25 mg PO DAILY trazodone 200 mg PO BEDTIME HPI Comments Details: 75-year-old man has a history of CKD in a setting of DM and long standing use of Chelyan in the past. Blood sugar are sub optimal [facility] Family History Mother Breast cancer Social History Alcohol intake: former Patient Tobacco Use Status: Former Tobacco user Physical Exam Vital Signs: BMI result Body Mass Index 26.2 Comfortable Neck supple no JVD. Lungs entry equal no rales. Heart S1-S2 heard no gallop or rub. Abdomen soft nontender. Neuro alert awake oriented. No asterixis. Extremities no edema. Results Reviewed Results Reviewed: Cr 2.0 in July Cr 2.11 Assessment & Plan Assessment & Plan (1) CKD (chronic kidney disease): Code(s): N18.9 - Chronic kidney disease, unspecified Category: Medical Plan: Renal Function is at baseline Avoid nephrotoxins Maintain A1C < 7% Would benefit from SGLT2 Inhibitor (2) HTN (hypertension): Code(s): I10 - Essential (primary) hypertension Category: Medical Plan: BP is rather LOW Decrease Hydralazine from 75 mg to 50 mg TID Low salt diet Keep same meds Orders: Orders Basic Metabolic Panel 6 Months I10 - Essential (primary) hypertension, N18.9 - Chronic kidney disease, unspecified Coding Level of Care Code Est Pt Level 4 (42174) Diagnoses CKD (chronic kidney disease) N18.9 HTN (hypertension) I10
--- OUTSIDE RECORDS SUMMARY | 2025-02-24 16:14 | XMS_ITS | Patient Health Record ---
[facility] Organization [facility] Address [address] [place] [address] Care Team Providers Care Audio Visual Collections Coordinator Name Role Phone Bonifacio Cuevas Primary Care Provider Bonifacio Cuevas Unavailable Unavailable ALLERGIES Allergen (clinical drug ingredient) Drug/Non Drug Allergy documented on EMR Reaction Allergy Type Onset Date Status amoxicillin / clavulanate Augmentin Unknown Drug Allergy Active RESULTS Component Value Reference Range Notes Hemoglobin [id number] Reviewed date:07/14/2024 09:26:55 AM Interpretation: Performing Lab:[facility], [employer] [facility], Phone - [phone], Director - Stacie Notes/Report: Hemoglobin A1c 7.0 4.8-5.6 % . Prediabetes: 5.7 - 6.4 Diabetes: >6.4 Glycemic control for adults with diabetes: <7.0 Basic Metabolic Panel (7)-30 5991 Reviewed date:07/14/2024 09:26:55 AM Interpretation: Performing Lab:[facility], [address] [facility], [place], Phone - [phone], Director - Stacie Notes/Report: Glucose 119 70-99 mg/dL BUN 22 8-27 mg/dL Creatinine 2.02 0.76-1.27 mg/dL eGFR 34 >59 mL/min/1.73 BUN/Creatinine Ratio 11 10-24 Sodium 134 134-144 mmol/L Potassium 5.2 3.5-5.2 mmol/L Chloride 98 96-106 mmol/L Carbon Dioxide, Total 21 20-29 mmol/L Uric Acid-270633 Reviewed date:01/28/2025 09:32:27 AM Interpretation: Performing Lab:[facility], [address] [facility], Phone - [phone], Director - Stacie Notes/Report: Uric Acid 2.9 3.8-8.4 mg/dL Therapeutic ta rget for gout patients: <6.0 Hemoglobin [id number]-[id number] Reviewed date:01/28/2025 09:32:27 AM Interpretation: Performing Lab:[facility], [address] [place] [address], Phone - [phone], Director - Stacie Notes/Report: Hemoglobin A1c 6.7 4.8-5.6 % . Prediabetes: 5.7 - 6.4 Diabetes: >6.4 Glycemic control for adults with diabetes: <7.0 LP+Non-HDL Cholesterol-48621 5 Reviewed date:01/28/2025 09:32:28 AM Interpretation: Performing Lab:[facility], [address] [facility], Phone - [phone], Director - Stacie Notes/Report: Cholesterol, Total 113 100-199 mg/dL Triglycerides 156 0-149 mg/dL HDL Cholesterol 35 >39 mg/dL VLDL Cholesterol Blake 27 5-40 mg/dL LDL Chol Calc (NIH) 51 0-99 mg/dL LDL Calc Comment: Non-HDL Cholesterol 78 0-129 mg/dL Comp. Metabolic Panel (13)-3 87897 Reviewed date:01/28/2025 09:32:28 AM Interpretation: Performing Lab:[facility], [address] [place] [address], Phone - [phone], Director - Stacie Notes/Report: Glucose 88 70-99 mg/dL BUN 24 [...] interval change AST (SGOT) 24 0-40 IU/L QD-[id number] Reviewed date:01/28/2025 09:32:28 AM Interpretation: Performing Lab:[facility], [address] [facility], Phone - [phone], Director - Stacie Notes/Report: NT-proBNP 207 0-486 pg/mL The following cut-points have been suggested for the use of proBNP for the diagnostic evaluation of heart failure (HF) in patients with acute dyspnea: . Modality Age Optimal Cut (years) Point Diagnosis (rule in HF) <50 450 pg/mL 50 - 75 900 pg/mL >75 1800 pg/mL Exclusion (rule out HF) Age independent 300 pg/mL Hemoglobin [id number] Reviewed date:08/20/2024 08:40:26 AM Interpretation: Performing Lab:[facility], [address] [place] [address], [place], Phone - [phone], Director Cathy Quinones Notes/Report: Hemoglobin A1c 7.0 4.8-5.6 % . Prediabetes: 5.7 - 6.4 Diabetes: >6.4 Glycemic control for adults with diabetes: <7.0 Basic Metabolic Panel (7)-30 0147 Reviewed date:08/20/2024 08:40:26 AM Interpretation: Performing Lab:[facility], [address] [place] [address], [place], Phone - [phone], Director - Stacie Notes/Report: Glucose 179 70-99 mg/dL BUN 26 8-27 mg/dL Creatinine 2.14 0.76-1.27 mg/dL eGFR 31 >59 mL/min/1.73 BUN/Creatinine Ratio 12 10-24 Sodium 138 134-144 mmol/L Potassium 5.6 3.5-5.2 mmol/L Chloride 99 96-106 mmol/L Carbon Dioxide, Total 20 20-29 mmol/L REASON FOR REFERRAL Reason Referral to physical therapy in [place] Diagnosis 1 Gait instability (R2 6.81) Referral Organization [facility] Referring Provider First Name Bonifacio Referring Provider Last Name Faith Referring Provider Speciality Internal M edicine Referred Provider Specialty Physical The rapist General Notes Zoey Awad 10/14/19 25 01:46:52 PM EDT > faxed to Ashley Jimenez gave card at checkout Clinical Notes premier Referral Priority Routine MEDICATIONS Medication SIG (Take, Route, Frequency, Duration) Notes Start Date End Date Status Albuterol Sulfate HFA 108 (90 Base) MCG/ACT INHALE 2 PUFFS INTO THE LUNGS EVERY 4 HOURS NEEDED for 17 Active Escitalopram Oxalate 20 MG (Prior Auth: Rx Ref#:[id number]) Oral Active Trelegy Ellipta 100-62.5-25 MCG/INH 1 puff Inhalation Once a day Active Atorvastatin Calcium 80 MG TAKE 1 TABLET BY MOUTH EVERY DAY for 90 Active buPROPion HCl ER (SR) 150 MG (Prior Auth: Rx Ref#:[id number]) Oral Active Albuterol Sulfate HFA 108 (90 Base) MCG/ACT inhale 2 puffs by mouth as needed every 6 hours Active amLODIPine Besylate 10 MG TAKE 1 TABLET BY MOUTH EVERY DAY FOR 90 DAYS for 90 Active HumaLOG KwikPen 100 UNIT/ML 10 units Subcutaneous Three times a day Active lamoTRIgine 200 MG (Prior Auth: Rx Ref#:[id number]) Oral Active amLODIPine Besylate 10 MG 1 tablet Orally Once a day Active Tresiba 100 U-100 18 units at bedtime Injection Once a day Active ARIPiprazole 5 MG 1/2 TABLET BY MOUTH DAILY Oral Active hydrALAZINE HCl 50 MG 1.5 tablet with fo od Orally Three times a day Active Allopurinol 300 MG TAKE 1 TABLET BY VICENTE TH EVERY DAY for 90 Active Rollator Ultra-Light - as directed Active Atorvastatin Calcium 80 MG TAKE 1 TABLET BY MOUTH EVERY DAY Active Plavix 75 MG 1 tablet Orally Once a day Active traZODone HCl 50 MG 3 tablet at bedtime Orally Once a day Active Fenofibrate Micronized 134 MG 1 capsule Orally Once a day Active Carvedilol 3.125 MG TAKE ONE TABLET BY M OUTH TWICE DAILY Active BD Pen Needle Short Ultrafine 31G X 8 MM USE TO INJECT INSULIN FOUR TIMES A DAY FOR 90 DAYS DIRECTED for 75 Active Carvedilol 3.125 MG TAKE 1 TABLET BY VICENTE TH TWICE A DAY WITH FOOD FOR 90 DAYS for 90 Active Ezetimibe 10 MG TAKE 1 TABLET BY VICENTE TH EVERY DAY Active Furosemide 20 MG 1 tablet Orally Twic e a day for 30 day(s) Active IMMUNIZATIONS Vaccine Route Administration Date Status Comme nts Pneumococcal IM Intramuscular 03/03/2018 Administered Influenza no Preserv 3 and > Unknown 02/01/2018 Pending Influenza no Preserv 3 and > Unknown 01/28/2019 Administered Influenza (Flucelvax Quad) Unknown 02/11/2021 Administe red *Influenza (Fluarix Quad) Unknown 12/14/2019 Administer ed *Influenza (Fluarix Quad) Unknown 02/23/2020 Administer ed SOCIAL HISTORY Tobacco Use: Social History Observation Description Date Details (start date - stop date) Former Smoker NA - NA Sex Assigned At : Social History Observation Description Sex Assigned At Unknown Tobacco Use/Smoking Question Answer Notes Are you a former smoker How long has it been since you last smoked? > 10 years Alcohol Screen Question Answer Notes Did you have a drink containing alcohol in the p ast year? 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) Active confirmed 363537229 Problem Primary insomnia (F51.01) Active confirmed 0740588 Problem Type 2 diabetes mellitus without complications (E11.9) Active confirmed Type II diabete s mellitus without complication (042954142) Problem Mixed hyperlipidemia (E78.2) Active confirmed 371483815 Problem Chronic kidney disease, stage 4 (severe) (N18.4) Active confirmed 947538541 LABS 08/16/21 GFR=29, MD Roge Problem Essential hypertension (I10) Active confirmed 89507782 Problem 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) Active confirmed 116658712678529 Problem Chronic obstructive pulmonary disease, unspecified COPD type (J44.9) Active confirmed 93108462 Problem Cerebrovascular accident (CVA), unspecified mechanism (I63.9) Active confirmed 741068450 Problem Depression, unspecified depression type (F32.9) Active confirmed 87604517 Dr Hernandez Problem Acute idiopathic gout of left foot (M10.072) Active confirmed 07258097 Problem Chronic kidney disease, unspecified CKD stage (N18.9) Active confirmed Chronic renal failure syndrome (91048622) Problem Aortic valve stenosis, etiology of cardiac valve disease unspecified (I35.0) Active confirmed 74115323 Dr Vázquez Problem Difficulty walking (R26.2) Active confirmed 977366801 Problem Recurrent major depressive disorder, in full remission (F33.42) Active confirmed 07981572 Problem Other congestive heart failure (I50.9) Active confirmed 51958491 Problem Type 2 diabetes mellitus with diabetic polyneuropathy, without long-term current use of insulin (E11.42) Active confirmed 81086572 Cara Seymour Problem Decompensated heart failure (I50.9) Active confirmed 687343109 Problem Gait instability (R26.81) Active confirmed 27645412 Problem Mild dementia (F03.90) Active confirmed 763596066965128 Problem Type 2 diabetes mellitus with diabetic peripheral angiopathy without gangrene, without long-term current use of insulin (E11.51) Active confirmed 070404031 Problem Gouty arthritis (M10.9) Active confirmed 407853994 VITAL SIGNS Heart Rate 78 /min 02/02/2025 Blood pressure diastolic 60 mm Hg 02/02/2025 Height 72 in 02/02/2025 Blood pressure systolic 120 mm Hg 02/02/2025 Weight 192.8 lbs 02/02/2025 BMI 26.15 kg/m2 02/02/2025 Encounters [facility]counter [facility] Date [facility] [address] [place] [address] [facility] [address] [place] [address] 05/21/2024 Bonifacio Cuevas Chronic obstructive pulmonary disease, unspecified COPD type J44.9 ; Type 2 diabetes mellitus without complications E11.9 ; Essential hypertension I10 ; Aortic valve stenosis, etiology of cardiac valve disease unspecified I35.0 ; Recurrent major depressive disorder, in full remission F33.42 ; Chronic kidney disease, stage 4 (severe) N18.4 ; Mixed hyperlipidemia E78.2 ; Difficulty walking R26.2 ; Primary insomnia F51.01 ; Anxiety F41.9 ; Gouty arthritis M10.9 ; Leg edema R60.0 ; Bilateral impacted cerumen H61.23 and Annual physical exam Z00.[address] [address] 05/27/2024 Bonifacio Cuevas Chronic obstructive pulmonary disease, unspecified [...] Difficulty walking R26.2 ; Primary insomnia F51.01 ; Anxiety F41.9 and Bilateral impacted cerumen H61.[address] [address] 05/27/2024 Bonifacio Cuevas Essential hypertensi on I10 [address] [address] 06/25/2024 Bonifacio Cuevas [address] [address] 07/15/2024 Bonifacio Cuevas Acute URI J06.9 ; Ch est congestion R09.89 and Respiratory infection J98.[address] [address] 08/20/2024 Bonifacio Cuevas Chronic obstructive pulmonary disease, [...] ; Primary insomnia F51.01 and Anxiety F41.[address] [place] [address] 08/20/2024 [facility] [address] [address] 09/12/2024 [facility] [address] [address] 09/16/2024 [facility] [address] [address] 09/17/2024 [facility] [address] [address] 10/13/2024 Bonifacio Cuevas Chronic obstructive pulmonary disease, unspecified [...] ; Difficulty walking R26.2 ; Anxiety F41.9 ; Leg edema R60.0 and Gait instability R26.81 [facility], [address] [address] 10/20[facility] [address] [address] [facility]/14/[facility] [address] [address] 01/25/2025 Bonifacio Cuevas Chronic obstructive pulmonary disease, [...] ; Anxiety F41.9 and Gait instability R26.[address] [address] 02/02/2025 Bonifacio Cuevas Chronic obstructive pulmonary disease, [...] Treatment Notes Treatment Clinical Notes Section Notes 05/27/2024 Chronic obstructive pulmonary disease, unspecified COPD type (ICD-10 - J44.9) 08/20/2024 Chronic obstructive pulmonary disease, unspecified COPD type (ICD-10 - J44.9) 08/20/2024 Type 2 diabetes mellitus without complications (ICD-10 - E11.9) 10/13/2024 Chronic obstructive pulmonary disease, unspecified COPD type (ICD-10 - J44.9) 10/13/2024 Type 2 diabetes mellitus without complications (ICD-10 - E11.9) 01/25/2025 Chronic obstructive pulmonary disease, unspecified COPD type (ICD-10 - J44.9) 01/25/2025 Type 2 diabetes mellitus without complications (ICD-10 - E11.9) 05/27/2024 Type 2 diabetes mellitus without complications (ICD-10 - E11.9) 05/27/2024 Essential hypertension (ICD-10 - I10) 07/15/2024 Acute URI (ICD-10 - J06.9) 05/21/2024 Chronic obstructive pulmonary disease, unspecified COPD type (ICD-10 - J44.9) 05/21/2024 Type 2 diabetes mellitus without complications (ICD-10 - E11.9) 07/15/2024 Chest congestion (ICD-10 - R09.89) 02/02/2025 Type 2 diabetes mellitus without complications (ICD-10 - E11.9) 02/02/2025 Chronic obstructive pulmonary disease, unspecified COPD type (ICD-10 - J44.9) 05/27/2024 Essential hypertension (ICD-10 - I10) 01/25/2025 Essential hypertension (ICD-10 - I10) 07/15/2024 Respiratory infection (ICD-10 - J98.8) 08/20/2024 Essential hypertension (ICD-10 - I10) 10/13/2024 Essential hypertension (ICD-10 - I10) 05/21/2024 Essential hypertension (ICD-10 - I10) 02/02/2025 Essential hypertension (ICD-10 - I10) 05/27/2024 Aortic valve stenosis, etiology of cardiac valve disease unspecified (ICD-10 - I35.0) 05/21/2024 Aortic valve stenosis, etiology of cardiac valve disease unspecified (ICD-10 - I35.0) 02/02/2025 Aortic valve stenosis, etiology of cardiac valve disease unspecified (ICD-10 - I35.0) 08/20/2024 Aortic valve stenosis, etiology of cardiac valve disease unspecified (ICD-10 - I35.0) 10/13/2024 Aortic valve stenosis, etiology of cardiac valve disease unspecified (ICD-10 - I35.0) 01/25/2025 Aortic valve stenosis, etiology of cardiac valve disease unspecified (ICD-10 - I35.0) 08/20/2024 Recurrent major depressive disorder, in full remission (ICD-10 - F33.42) Well controlled on current therapy, continue present regimen 02/02/2025 Recurrent major depressive disorder, in full remission (ICD-10 - F33.42) 10/13/2024 Recurrent major depressive disorder, in full remission (ICD-10 - F33.42) 01/25/2025 Recurrent major depressive disorder, in full remission (ICD-10 - F33.42) 05/27/2024 Recurrent major depressive disorder, in full remission (ICD-10 - F33.42) Well controlled on current therapy, continue present regimen 05/21/2024 Recurrent major depressive disorder, in full remission (ICD-10 - F33.42) Well controlled on current therapy, continue present regimen 08/20/2024 Chronic kidney disease, stage 4 (severe) (ICD-10 - N18.4) 05/27/2024 Chronic kidney disease, stage 4 (severe) (ICD-10 - N18.4) 10/13/2024 Chronic kidney disease, stage 4 (severe) (ICD-10 - N18.4) 01/25/2025 Chronic kidney disease, stage 4 (severe) (ICD-10 - N18.4) 05/21/2024 Chronic kidney disease, stage 4 (severe) (ICD-10 - N18.4) 02/02/2025 Chronic kidney disease, stage 4 (severe) (ICD-10 - N18.4) 01/25/2025 Mixed hyperlipidemia (ICD-10 - E78.2) 10/13/2024 Mixed hyperlipidemia (ICD-10 - E78.2) 02/02/2025 Mixed hyperlipidemia (ICD-10 - E78.2) 08/20/2024 Mixed hyperlipidemia (ICD-10 - E78.2) Well controlled on current therapy, continue present regimen 05/21/2024 Mixed hyperlipidemia (ICD-10 - E78.2) Well controlled on current therapy, continue present regimen 05/27/2024 Mixed hyperlipidemia (ICD-10 - E78.2) Well controlled on current therapy, continue present regimen 02/02/2025 Gouty arthritis (ICD-10 - M10.9) 05/21/2024 Difficulty walking (ICD-10 - R26.2) 10/13/2024 Gouty arthritis (ICD-10 - M10.9) 08/20/2024 Gouty arthritis (ICD-10 - M10.9) 05/27/2024 Gouty arthritis (ICD-10 - M10.9) 01/25/2025 Gouty arthritis (ICD-10 - M10.9) 02/02/2025 Primary insomnia (ICD-10 - F51.01) 05/21/2024 Primary insomnia (ICD-10 - F51.01) 08/20/2024 Leg edema (ICD-10 - R60.0) Patient was advised to hold furosemide and monitor his weight and leg swelling. I explained to him that if he starts gaining weight and having difficulty breathing or leg edema to start the medication again. 05/27/2024 Leg edema (ICD-10 - R60.0) Patient was advised to hold furosemide and monitor his weight and leg swelling. I explained to him that if he starts gaining weight and having difficulty breathing or leg edema to start the medication again. 01/25/2025 Primary insomnia (ICD-10 - F51.01) 10/13/2024 Primary insomnia (ICD-10 - F51.01) 05/27/2024 Difficulty walking (ICD-10 - R26.2) 08/20/2024 Difficulty walking (ICD-10 - R26.2) 01/25/2025 Difficulty walking (ICD-10 - R26.2) 05/21/2024 Anxiety (ICD-10 - F41.9) Well controlled on current therapy, continue present regimen 02/02/2025 Difficulty walking (ICD-10 - R26.2) 10/13/2024 Difficulty walking (ICD-10 - R26.2) 10/13/2024 Anxiety (ICD-10 - F41.9) 08/20/2024 Primary insomnia (ICD-10 - F51.01) 02/02/2025 Anxiety (ICD-10 - F41.9) 05/21/2024 Gouty arthritis (ICD-10 - M10.9) 01/25/2025 Anxiety (ICD-10 - F41.9) 05/27/2024 Primary insomnia (ICD-10 - F51.01) 01/25/2025 Gait instability (ICD-10 - R26.81) 10/13/2024 Leg edema (ICD-10 - R60.0) 08/20/2024 Anxiety (ICD-10 - F41.9) Well controlled on current therapy, continue present regimen 02/02/2025 Gait instability (ICD-10 - R26.81) 05/21/2024 Leg edema (ICD-10 - R60.0) Patient was advised to hold furosemide and monitor his weight and leg swelling. I explained to him that if he starts gaining weight and having difficulty breathing or leg edema to start the medication again. 05/27/2024 Anxiety (ICD-10 - F41.9) Well controlled on current therapy, continue present regimen 10/13/2024 Gait instability (ICD-10 - R26.81) 05/21/2024 Bilateral impacted cerumen (ICD-10 - H61.23) 05/27/2024 Bilateral impacted cerumen (ICD-10 - H61.23) 05/21/2024 Annual physical exam (ICD-10 - Z00.00) 05/21/2024 Other This chart has been transcribed by a computerized dictation system. There are likely to be multiple drafter (cad) electrical inaccuracies despite chart review. 08/20/2024 Other This chart has been transcribed by a computerized dictation system. There are likely to be multiple drafter (cad) electrical inaccuracies despite chart review. 05/27/2024 Other This chart has been transcribed by a computerized dictation system. There are likely to be multiple drafter (cad) electrical inaccuracies despite chart review. 10/13/2024 Other This chart has been transcribed by a computerized dictation system. There are likely to be multiple drafter (cad) electrical inaccuracies despite chart review. 01/25/2025 Other This chart has been transcribed by a computerized dictation system. There are likely to be multiple drafter (cad) electrical inaccuracies despite chart review. 02/02/2025 Other This chart has been transcribed by a computerized dictation system. There are likely to be multiple drafter (cad) electrical inaccuracies despite chart review. 07/15/2024 Other This chart has been transcribed by a computerized dictation system. There are likely to be multiple drafter (cad) electrical inaccuracies despite chart review. PLAN OF TREATMENT Pending Test Test Name Order Date NUCLEAR MED : Stress Mibi 07/03/2018 NUCLEAR MED : Stress Mibi 07/09/2018 Echocardiogram 07/22/2018 Audiometry 11/28/2022 Chest X-ray PA and lateral 12/08/2018 Chest X-ray PA and lateral 11/13/2021 *EKG 07/02/2018 *SPIROMETRY 12/08/2018 Physical Therapy 06/29/2024 Physical Therapy 11/30/2022 EAR IRRIGATION 09/28/2020 EAR IRRIGATION 12/02/2023 EAR IRRIGATION 01/10/2023 EAR IRRIGATION 09/06/2021 EAR IRRIGATION 04/27/2021 HEMOGLOBIN A1C 02/23/2020 HEMOGLOBIN A1C 12/05/2020 COMPREHENSIVE METABOLIC PANL 12/05/2020 LIPID PANEL 12/05/2020 C. DIFFICILE TOXIN PCR 09/13/2020 BASIC METABOLIC PANEL 11/28/2022 BASIC METABOLIC PANEL 05/30/2023 BASIC METABOLIC PANEL 12/06/2021 B-TYPE NATRIURETIC PEPTIDE (BNP) 023 B-TYPE NATRIURETIC PEPTIDE (BNP) 023 B-TYPE NATRIURETIC PEPTIDE (BNP) 022 COMPREHENSIVE METABOLIC PANEL 08/28/2022 COMPREHENSIVE METABOLIC PANEL 06/08/2021 COMPREHENSIVE METABOLIC PANEL 02/27/2023 HEMOGLOBIN A1C 06/05/2022 HEMOGLOBIN A1C 12/06/2021 HEMOGLOBIN A1C 02/27/2023 HEMOGLOBIN A1C 06/08/2021 HEMOGLOBIN A1C 05/30/2023 HEMOGLOBIN A1C 11/28/2022 HEMOGLOBIN A1C 08/28/2022 HEPATIC FUNCTION PANEL 09/05/2021 LIPID PANEL 09/05/2021 LIPID PANEL 02/27/2023 LIPID PANEL 06/08/2021 LIPID PANEL 08/28/2022 MAGNESIUM 08/28/2022 MICROALBUMIN, URINE 02/27/2023 PHOSPHORUS 08/28/2022 URIC ACID 12/27/2022 Uric Acid-479209 10/13/2024 Hemoglobin M6c-822141 10/13/2024 Hemoglobin P9g-750910 02/02/2025 Lipid Panel-019333 10/13/2024 Comp. Metabolic Panel [phone] 2024 Next Appt Details Provider Name:Edwina Max i, 04/21/2025 01:15:00 PM, [address] [place], [address], Insurance Providers Payer Name Payer Address Payer Phone Subscriber Number Group Number Insured Name Patient Relationship to Insured Coverage Start Date Coverage End Date MEDICARE [employer] [address] [place] [address] [id number] PopStefano ruggiero Self - patient is the insured [facility]( [facility] [address] [place] [address] [id number] PopStefano ruggiero Self - patient is the insured MEDICAL (GENERAL) HISTORY Medical History History ICD Code Essential hypertension I10 Type 2 diabetes mellitus without complic ations E11.9 Mixed hyperlipidemia E78.2 Depression, unspecified depression type F32.9 Anxiety F41.9 Primary insomnia F51.01 Surgical History Surgery Date(Month/Year) cholecystectomy Aortic valve replacement 11/2019 Hospitalization History Reason Date(Month/Year) for above procedure
== END 2025-02-24 12:03 | disposition home or self-care (01) ==
LOC: HO.HKAS 11:41
PROVIDERS: PCP Internal Medicine; Visit Provider Internal Medicine Hypertension Specialist
DX: I12.9 Hypertensive chronic kidney disease with stage 1 through stage 4 chronic kidney disease, or unspecified chronic kidney disease (principal); N18.9 Chronic kidney disease, unspecified
CPT/HCPCS: 99214

== ENCOUNTER → 2025-02-24 11:40 | Outpatient (BNVA) | payer MEDICARE, OTHER, SELFPAY | PROVIDERS: PCP Internal Medicine; Visit Provider Internal Medicine Hypertension Specialist | DX: I12.9 Hypertensive chronic kidney disease with stage 1 through stage 4 chronic kidney disease, or unspecified chronic kidney disease (principal); N18.9 Chronic kidney disease, unspecified; Z87.891 Personal history of nicotine dependence | CPT/HCPCS: 99212 ==